=== PATIENT | female | born 1965 | race Caucasian/White ===

== ENCOUNTER 2016-10-26 21:11 | Emergency (ER) | payer OTHER ==
--- NOTE | 2016-10-26 22:10 | ERPHSYRPT ---
- History of Present Illness Time Seen by Provider: 10/26/16 22:05 Source: patient Exam Limitations: no limitations Patient Subjective Stated Complaint: pt states she was diagnosed with flu b on thursday and has been having increased cough and aches and pain since Triage Nursing Assessment: pt alert and oriented, answers questions approp. pt ambulatory with steady gait noted. skin pink warm and dry. respirations nonlabored with exp wheeze throughout. hacking cough continuously noted. Physician History: The patient is a 51-year-old female who was diagnosed 2 days ago at a local clinic with influenza B infection. She was offered Tamiflu but declined because of the expense. Now she has an increasing dry cough. No fevers. Timing/Duration: day(s) (2) Cough Quality/Degree: severe, dry cough Possible Cause: no prior episodes Modifying Factors: Improves With: coughing Associated Symptoms: cough, wheezing Allergies/Adverse Reactions: No Known Drug Allergies Allergy (Unverified 10/26/16 22:02) Home Medications: Alprazolam [Xanax 0.5 mg] 0.5 mg PO Q6HPRN PRN 10/26/16 [History] Bupropion HCl [Wellbutrin Xl] 300 mg PO DAILY 10/26/16 [History] PANTOPRAZOLE 40 mg Tablet [Protonix 40MG Tablet] 40 mg PO QAM 10/26/16 [ History] Propranolol HCl 10 mg [Inderal 10 MG] 10 mg PO HS 10/26/16 [History] Venlafaxine HCl [Effexor] 150 mg PO DAILY 10/26/16 [History] Hx Tetanus, Diphtheria Vaccination/Date Given: Yes Hx Influenza Vaccination/Date Given: Yes Hx Pneumococcal Vaccination/Date Given: No Immunizations Up to Date: Yes - Review of Systems Constitutional: No Fever, No Chills Eyes: No Symptoms Ears, Nose, & Throat: No Symptoms Respiratory: Cough, Dyspnea Cardiac: No Chest Pain, No Edema, No Syncope Abdominal/Gastrointestinal: No Abdominal Pain, No Nausea, No Vomiting, No Diarrhea Genitourinary Symptoms: No Dysuria Musculoskeletal: No Back Pain, No Neck Pain Skin: No Rash Neurological: No Dizziness, No Focal Weakness, No Sensory Changes Psychological: No Symptoms Endocrine: No Symptoms Hematologic/Lymphatic: No Symptoms Immunological/Allergic: No Symptoms All Other Systems: Reviewed and Negative - Past Medical History Pertinent Past Medical History: Yes Cardiac History: Other GI Medical History: GERD Psycho-Social History: Depression Other Medical History: tachycardia - Past Surgical History Past Surgical History: Yes Musculoskeletal: Orthopedic Surgery Female Surgical History: Section Other Surgical History: surgery to rt foot - Social History Smoking Status: Current every day smoker How long have you smoked: 3 yrs Exposure to second hand smoke: No Drug Use: none Patient Lives Alone: No - Female History Hx Last Menstrual Period: shot - Nursing Vital Signs Nursing Vital Signs: Initial Vital Signs Temperature 99.4 F Temperature Source Oral Pulse Rate 97 Respiratory Rate 12 Blood Pressure [] 159/83 Pain Intensity 10 - Physical Exam General Appearance: mild distress Eye Exam: PERRL/EOMI, eyes nml inspection Ears, Nose, Throat Exam: normal ENT inspection, TMs normal, pharynx normal, moist mucous membranes Neck Exam: normal inspection, non-tender, supple, full range of motion Respiratory Exam: rhonchi, wheezing Cardiovascular Exam: regular rate/rhythm, normal heart sounds Gastrointestinal/Abdomen Exam: soft, No tenderness Pelvic Exam: not done Rectal Exam: not done Back Exam: normal inspection, No CVA tenderness, No vertebral tenderness Extremity Exam: normal inspection, normal range of motion Neurologic Exam: alert, oriented x 3, cooperative, normal mood/affect, sensation nml, No motor deficits Skin Exam: normal color, warm, dry, No rash SpO2 Interpretation: normal SpO2: 98 Oxygen Delivery: Room Air - Radiology Exams Chest X-ray Interpretation: Interpreted by me, Infiltrates (Infiltrate in sulcus on lateral view, questionable 1 cm nodule left lower lung on PA, no comp CXR) Ordered Tests: Active Orders 24 hr Category Date Time Status IV Insertion STAT Care 10/26/16 22:12 Active Pulse Oximetry (ED) STAT Care 10/26/16 22:12 Active CHEST 2 VIEWS (PA AND LAT) Stat Exams 10/26/16 22:12 Ordered BLOOD CULTURE Stat Lab 10/26/16 23:00 Received Respiratory Nebulizer STAT RT 10/26/16 22:13 Completed Medication Summary Discontinued Medications Generic Name Dose Route Start Last Admin Trade Name Freq PRN Reason Stop Dose Admin Albuterol/Ipratropium 3 ml 10/26/16 22:12 10/26/16 22:24 Duoneb 0.5-3 Mg/3 Ml Neb IH 10/26/16 22:13 3 ml STAT ONE Administration Albuterol/Ipratropium Confirm 10/26/16 22:21 Duoneb 0.5-3 Mg/3 Ml Neb Administered 10/26/16 22:22 Dose 3 ml IH .STK-MED ONE Benzonatate 100 mg 10/26/16 22:58 10/26/16 23:18 Tessalon Perles 100 Mg PO 10/26/16 22:59 100 mg TID PRN STA Administration Ceftriaxone Sodium/Dextrose 50 mls @ 100 mls/hr 10/26/16 23:05 10/26/16 23:19 Rocephin 1 Gm-D5w 50 Ml Bag IV 10/26/16 23:34 100 mls/hr STAT ONE Administration Ceftriaxone Sodium/Dextrose Confirm 10/26/16 23:19 Rocephin 1 Gm-D5w 50 Ml Bag Administered 10/26/16 23:20 Dose 50 mls @ ud IV .STK-MED ONE Ketorolac Tromethamine 30 mg 10/26/16 22:13 10/26/16 22:32 Toradol 30 Mg Injection IV 10/26/16 22:14 30 mg STAT ONE Administration Ketorolac Tromethamine Confirm 10/26/16 22:31 Toradol 30 Mg Injection Administered 10/26/16 22:32 Dose 30 mg .ROUTE .STK-MED ONE Methylprednisolone Sodium Succinate 125 mg 10/26/16 22:12 10/26/16 22:32 Solu-Medrol 125 Mg IV 10/26/16 22:13 125 mg STAT ONE Administration Methylprednisolone Sodium Succinate Confirm 10/26/16 22:31 Solu-Medrol 125 Mg Administered 10/26/16 22:32 Dose 125 mg .ROUTE .STK-MED ONE - Progress Progress: improved Air Movement: good Progress Note: 10/26/16 23:07 After DuoNeb treatment and Solu-Medrol 125 mg IV, ausculatory exam a patient's lungs sound better but the patient is still coughing significantly. The patient will be given Tessalon Perles 100 mg orally. Also there is an infiltrate on the lateral chest x-ray so the patient will be given Rocephin 1 g IV. Blood Culture(s) Obtained: Yes Antibiotics given: Yes - Departure Time of Disposition: 23:38 Departure Disposition: Home Clinical Impression: Infiltrate noted on imaging study, Cough, Influenza B Condition: Stable Critical Care Time: No Additional Instructions: You have an influenza B infection that is causing a dry cough. You were given a 2 own have inhalation treatment, Solu-Medrol 125 mg IV, and Rocephin 1 g IV. The antibiotic was given for an infiltrate or pneumonia that was seen on the chest x-ray. You're given a prescription for another antibiotic called azithromycin. Her also to take prednisone 60 mg every day for 5 days. Given a prescription for a narcotic cough syrup to use as directed. Follow-up as needed. Prescriptions: Azithromycin [Azithromycin 250 mg Pack] 250 mg PO UD #6 tablet Prednisone 10 mg [Deltasone 10 mg] 60 mg PO DAILY #30 tablet Promethazine W Codeine Syr [Phenergan with Codeine Syrup] 5 ml PO Q4- 6HPRN PRN #60 ml PRN Reason: Cough
[2016-10-26] MEDS ORDERED: DUONEB 0.5-3 MG/3 ml Neb IH ONE ×2 (22:12→22:21)
[2016-10-26] MEDS ORDERED: solu-MEDROL 125 MG IV ONE (22:12)
[2016-10-26] MEDS ORDERED: TORAdol 30 mg Injection IV ONE (22:13)
[2016-10-26] MEDS ORDERED: solu-MEDROL 125 MG ONE (22:31)
[2016-10-26] MEDS ORDERED: TORAdol 30 mg Injection ONE (22:31)
[2016-10-26] MEDS ORDERED: Tessalon Perles 100 MG PO STA (22:58)
[2016-10-26] MEDS ORDERED: ROCEPHIN 1 Gm-D5w 50 ml Bag** 50 ML IV ONE ×2 (23:05→23:19)
[2016-10-26] MEDS ORDERED: PHENERGAN WITH CODEINE SYRUP PO ONE (23:37)
[2016-10-26] MEDS ORDERED: PHENERGAN WITH CODEINE SYRUP ONE (23:59)
[2016-10-27 00:10] VITALS: BP 128/76; PULSE 99; O2SAT 97
--- NOTE | 2016-10-27 08:42 | XRAY ---
Indication: Cough. Flu symptoms. Comparison: None PA/lateral chest demonstrates normal heart, lungs, and bony thorax. Incidental bilateral nipple shadows.
== END 2016-10-27 00:20 | disposition home or self-care (01) ==
LOC: ED 21:11
DX: J11.1 Influenza due to unidentified influenza virus with other respiratory manifestations (principal); R05 Cough
CPT/HCPCS: 36000; 36415; 71020; 87040; 94640; 96365; 96374; 96375; 99284; J0696; J1885; J2930; A9270-GY